=== PATIENT | female | born 1955 | race Caucasian/White ===

== ENCOUNTER 2020-10-26 07:18 | Inpatient (IN) | payer OTHER, SELFPAY ==
[~2020-10-26] VITALS: Ht 167.6 cm; Wt 65.8 kg
[2020-10-26 07:18] VITALS: BP_SYST 169
[2020-10-26] MEDS ORDERED: INSULIN REGULAR, HUMAN 100 UNITS in NS 99 ML IV ONE ×2 (08:15)
[2020-10-26] MEDS ORDERED: INSULIN REGULAR, HUMAN 10 UNITS/0.1 ML INJ ONE (08:18)
[2020-10-26 08:22] LABS: BASOPHILS # (AUTO) 0.1 K/uL (0.0-0.2); BASOPHILS % (AUTO) 0.6 % (0.0-2.0); EOSINOPHILS % (AUTO) 0.1 % (0.0-4.0); HEMATOCRIT 48.2 % (36-48); HEMOGLOBIN 15.6 g/dL (12.0-16.0); LYMPHOCYTES # (AUTO) 2.2 K/uL (1.0-5.5); LYMPHOCYTES % (AUTO) 12.3 % (20.5-51.5); MEAN CORPUSCULAR HEMOGLOBIN 30 pg (27-31); MEAN CORPUSCULAR HGB CONC 32 % (32-36); MEAN CORPUSCULAR VOLUME 91 fL (79.0-98.0); MONOCYTES % (AUTO) 5.5 % (1.7-9.3); NEUTROPHILS # (AUTO) 14.8 K/uL (1.8-7.7); NEUTROPHILS % (AUTO) 81.5 % (40.0-70.0); PLATELET COUNT (AUTO) 540 K/uL (130-430); RED CELL DISTRIBUTION WIDTH 13.9 % (9.0-15.0); WHITE BLOOD COUNT (AUTO) 18.2 K/uL (4.8-10.8)
[2020-10-26] MEDS ORDERED: LEVO88TA5 PO (08:22)
[2020-10-26] MEDS ORDERED: LIP40 PO (08:22)
[2020-10-26] MEDS ORDERED: INSU300I3 SQ (08:22)
[2020-10-26] MEDS ORDERED: LISI-600 PO (08:22)
[2020-10-26] MEDS ORDERED: SITA100T11 PO (08:22)
[2020-10-26] MEDS ORDERED: SODIUM BICARBONATE 8.4% JECT 50 MEQ/50 ML SYRINGE ONE ×3 (08:24→23:02)
[2020-10-26] MEDS ORDERED: SODIUM BICARBONATE 8.4% JECT 50 MEQ/50 ML SYRINGE IVP ONE ×2 (08:30→23:00)
[2020-10-26 08:35] LABS: INR 0.9 (0.8-1.2); PROTHROMBIN TIME 9.6 SECS (9.5-12.5)
[2020-10-26 08:45] LABS: ALANINE AMINOTRANSFERASE 22 U/L (12-78); ALBUMIN 3.5 g/dL (3.4-4.8); ANION GAP 35 (5-15); ASPARTATE AMINOTRANSFERASE 21 U/L (10-37); CALCIUM 10.3 mg/dL (8.4-11.0); CHLORIDE 87 mmol/L (98-107); CREATININE 1.21 mg/dL (0.55-1.30); POTASSIUM 5.7 mmol/L (3.5-5.1); SODIUM SERUM 127 mmol/L (136-145); TOTAL BILIRUBIN 0.6 mg/dL (0.0-1.0); UREA NITROGEN, BLOOD 31 mg/dL (8-21)
[2020-10-26 08:54] LABS: ALCOHOL, BLOOD < 3 mg/dL (<10); GFR AFRICAN AMERICAN 58 mL/min (>90); GLUCOSE 407 mg/dL (70-99)
[2020-10-26] MEDS ORDERED: ONDANSETRON HCL 4 MG/2 ML VIAL IVP PRN (09:00)
[2020-10-26] MEDS ORDERED: NS 500 ML IV SCH (09:00)
[2020-10-26] MEDS ORDERED: KCL 20 mEq in 100 mL (PREMIX) 100 ML IV ONE (09:00)
[2020-10-26] MEDS ORDERED: DEXTROSE 50% JECT 50 ML DISP.SYRIN IVP PRN (09:00)
[2020-10-26] MEDS ORDERED: MAGNESIUM SULFATE 50 ML IV PRN (09:00)
[2020-10-26] MEDS ORDERED: ACETAMINOPHEN 325 MG TABLET PO PRN (09:00)
[2020-10-26] MEDS ORDERED: NACL 0.9% 1,000 ML IV ONE (09:15)
[2020-10-26 09:18] LABS: BILIRUBIN,URINE NEGATIVE (NEGATIVE); CLARITY/URINE SL CLOUDY (CLEAR); COLOR,URINE YELLOW (YELLOW); GLUCOSE,URINE 3+ (NEGATIVE); KETONES,URINE 3+ (NEGATIVE); LEUKOCYTE ESTERASE ,URINE NEGATIVE (NEGATIVE); NITRITE, URINE NEGATIVE (NEGATIVE); PH,URINE 5.5 (5.0-8.0); PROTEIN URINE 1+ (NEGATIVE); UROBILINOGEN,URINE 0.2 (0.2-1.0)
[2020-10-26] MEDS ORDERED: KCL 20 mEq in 100 mL (PREMIX) 100 ML IV PRN (09:20)
[2020-10-26] MEDS ORDERED: NACL 0.9% 2,500 ML IV ONE (09:30)
[2020-10-26 09:33] LABS: BARBITURATE, URINE NEGATIVE (NEG <=200); BENZODIAZEPINE, URINE NEGATIVE (NEG <=150); CANNABINOID, URINE NEGATIVE (NEG <=50); COCAINE, URINE NEGATIVE (NEG <=150); METHAMPHETAMINES SCREEN,URINE NEGATIVE (NEG <=500); OPIATE, URINE NEGATIVE (NEG <=100); PHENCYCLIDINE SCREEN,URINE NEGATIVE (NEG <=25); UR TRICYCLIC ANTIDEPRESSANTS NEGATIVE (NEG <=300); URINE AMPHETAMINE NEGATIVE (NEG <=500); URINE METHADONE NEGATIVE (NEG <=200); URINE OXYCODONE SCREEN NEGATIVE (NEG <=100); URINE PROPOXYPHENE SCREEN NEGATIVE (NEG <=300)
[2020-10-26 09:35] LABS: BLOOD, URINE TRACE (NEGATIVE)
[2020-10-26 09:55] LABS: ANION GAP 32 (5-15); CALCIUM 8.8 mg/dL (8.4-11.0); CHLORIDE 94 mmol/L (98-107); GLUCOSE 397 mg/dL (70-99); PHOSPHORUS 5.8 mg/dL (2.7-4.5); SODIUM SERUM 133 mmol/L (136-145); UREA NITROGEN, BLOOD 33 mg/dL (8-21)
[2020-10-26 09:58] LABS: GFR AFRICAN AMERICAN 53 mL/min (>90)
[2020-10-26 10:18] LABS: ACETONE, SERUM LARGE (NEGATIVE); CHOLESTEROL 179 mg/dL (<200); HDL CHOLESTEROL 25 mg/dL (>55); LDL CHOLESTEROL 105 mg/dL (<100); TRIGLYCERIDES 253 mg/dL (30-150)
[2020-10-26 10:27] LABS: BACTERIA,URINE RARE /HPF (None Seen); WBC,URINE 0-3 /HPF (0-3)
[2020-10-26 10:28] LABS: COARSE GRANULAR CASTS,URINE 0-10 /LPF (None Seen); URINE AMORPHOUS URATE 2+ /HPF (None Seen)
[2020-10-26] MEDS: INSULIN REGULAR, HUMAN 100 UNITS in NS 99 ML IV PRN ×10 (12:47→22:28)
[2020-10-26] MEDS: AZITHROMYCIN 250 MG in NS 250 ML IV SCH (12:48)
[2020-10-26 12:52] LABS: CREATININE 1.28 mg/dL (0.55-1.30); POTASSIUM 3.8 mmol/L (3.5-5.1)
[2020-10-26] MEDS ORDERED: AZITHROMYCIN 500 MG/VIAL (ZITHROMAX) IV ONE (12:52)
[2020-10-26] MEDS ORDERED: ENOXAPARIN SODIUM 40 MG/0.4 ML SYRINGE ONE ×2 (12:55→21:48)
[2020-10-26] MEDS: ASCORBIC ACID 500 MG TABLET PO SCH ×2 (12:58→21:00)
[2020-10-26] MEDS: CHOLECALCIFEROL (VITAMIN D3) 5,000 UNIT TABLET PO SCH (12:59)
[2020-10-26] MEDS: THIAMINE HCL 100 MG TABLET PO SCH (12:59)
[2020-10-26] MEDS: ENOXAPARIN SODIUM 40 MG/0.4 ML SYRINGE SUBCUT SCH ×2 (13:01→21:51)
[2020-10-26] MEDS ORDERED: cefTRIAXone 1 GM VIAL ONE (13:04)
[2020-10-26] MEDS: FAMOTIDINE PF 20 MG/2 ML VIAL IVP SCH ×2 (13:29→21:58)
[2020-10-26] MEDS ORDERED: 0.45% NACL 1,000 ML IV ONE (17:00)
[2020-10-26 18:26] LABS: CALCIUM 7.7 mg/dL (8.4-11.0); CREATININE 1.11 mg/dL (0.55-1.30); POTASSIUM 3.9 mmol/L (3.5-5.1)
[2020-10-26] MEDS ORDERED: SODIUM BICARBONATE 8.4% JECT 50 MEQ in 0.45% NACL 1,000 ML IVP SCH ×2 (19:00→19:15)
[2020-10-26] MEDS ORDERED: 0.45% NACL 1,000 ML IV SCH (19:00)
[2020-10-26] MEDS ORDERED: D5/0.45 NS 500 ML IV ONE (19:15)
[2020-10-26 22:44] LABS: CALCIUM 7.8 mg/dL (8.4-11.0); CREATININE 1.13 mg/dL (0.55-1.30); POTASSIUM 3.6 mmol/L (3.5-5.1)
[2020-10-27] MEDS: INSULIN REGULAR, HUMAN 100 UNITS in NS 99 ML IV PRN ×20 (01:38→18:57)
[2020-10-27 02:33] LABS: CREATININE 1.16 mg/dL (0.55-1.30); POTASSIUM 3.1 mmol/L (3.5-5.1)
[2020-10-27] MEDS ORDERED: SODIUM BICARBONATE 8.4% JECT 50 MEQ/50 ML SYRINGE IVP ONE ×2 (02:45→21:00)
[2020-10-27] MEDS ORDERED: SODIUM BICARBONATE 8.4% JECT 50 MEQ/50 ML SYRINGE ONE ×2 (02:49→21:07)
[2020-10-27] MEDS: DEXTROSE IV SCH (03:07)
[2020-10-27 07:00] LABS: BASOPHILS # (AUTO) 0.1 K/uL (0.0-0.2); BASOPHILS % (AUTO) 0.9 % (0.0-2.0); HEMATOCRIT 36.3 % (36-48); HEMOGLOBIN 12.4 g/dL (12.0-16.0); LYMPHOCYTES # (AUTO) 1.2 K/uL (1.0-5.5); LYMPHOCYTES % (AUTO) 12.9 % (20.5-51.5); MEAN CORPUSCULAR HEMOGLOBIN 30 pg (27-31); MEAN CORPUSCULAR HGB CONC 34 % (32-36); MEAN CORPUSCULAR VOLUME 87 fL (79.0-98.0); MONOCYTES # (AUTO) 1.1 K/uL (0.0-1.0); MONOCYTES % (AUTO) 11.8 % (1.7-9.3); NEUTROPHILS # (AUTO) 6.8 K/uL (1.8-7.7); NEUTROPHILS % (AUTO) 74.4 % (40.0-70.0); PLATELET COUNT (AUTO) 434 K/uL (130-430); RED BLOOD CELL COUNT(AUTO) 4.17 MIL/uL (4.2-6.2); RED CELL DISTRIBUTION WIDTH 13.7 % (9.0-15.0); WHITE BLOOD COUNT (AUTO) 9.2 K/uL (4.8-10.8)
[2020-10-27 07:17] LABS: CALCIUM 8.1 mg/dL (8.4-11.0); CREATININE 1.19 mg/dL (0.55-1.30)
[2020-10-27 08:13] LABS: POTASSIUM 2.8 mmol/L (3.5-5.1)
[2020-10-27] MEDS ORDERED: 0.45% NS 500 ML IV ONE (08:15)
[2020-10-27] MEDS ORDERED: KCL 20 mEq in 100 mL (PREMIX) 100 ML IV ONE ×3 (08:15→23:54)
[2020-10-27] MEDS ORDERED: NACL 0.9% 1,000 ML IV ONE (08:15)
[2020-10-27] MEDS: AZITHROMYCIN 250 MG in NS 250 ML IV SCH (08:22)
[2020-10-27] MEDS: ASCORBIC ACID 500 MG TABLET PO SCH ×2 (09:18→21:25)
[2020-10-27] MEDS: FAMOTIDINE PF 20 MG/2 ML VIAL IVP SCH ×2 (09:18→21:26)
[2020-10-27] MEDS: THIAMINE HCL 100 MG TABLET PO SCH (09:18)
[2020-10-27] MEDS: CHOLECALCIFEROL (VITAMIN D3) 5,000 UNIT TABLET PO SCH (09:19)
[2020-10-27] MEDS: ENOXAPARIN SODIUM 40 MG/0.4 ML SYRINGE SUBCUT SCH ×2 (09:19→21:19)
[2020-10-27] MEDS ORDERED: cefTRIAXone 1 GM VIAL ONE (09:24)
[2020-10-27] MEDS ORDERED: KCL 40 mEq in 100 mL (PREMIX) 100 ML IV ONE (10:00)
[2020-10-27 11:08] LABS: ALBUMIN 2.1 g/dL (3.4-4.8); CALCIUM 7.3 mg/dL (8.4-11.0); CREATININE 1.28 mg/dL (0.55-1.30); POTASSIUM 3.8 mmol/L (3.5-5.1); TOTAL BILIRUBIN 0.4 mg/dL (0.0-1.0)
[2020-10-27 14:29] LABS: CALCIUM 7.8 mg/dL (8.4-11.0); CREATININE 1.11 mg/dL (0.55-1.30)
[2020-10-27 14:46] LABS: POTASSIUM 2.6 mmol/L (3.5-5.1)
[2020-10-27 19:46] LABS: CALCIUM 8.1 mg/dL (8.4-11.0); CREATININE 1.08 mg/dL (0.55-1.30); POTASSIUM 4.1 mmol/L (3.5-5.1)
[2020-10-27] MEDS ORDERED: ENOXAPARIN SODIUM 40 MG/0.4 ML SYRINGE ONE (21:18)
[2020-10-27 23:49] LABS: CALCIUM 8.1 mg/dL (8.4-11.0); CREATININE 1.09 mg/dL (0.55-1.30)
[2020-10-27 23:50] LABS: POTASSIUM 2.7 mmol/L (3.5-5.1)
[2020-10-28] MEDS ORDERED: POTASSIUM CHLORIDE 20 MEQ TAB.PRT.SR PO ONE ×2 (00:15→09:15)
[2020-10-28] MEDS ORDERED: POTASSIUM CHLORIDE 20 MEQ TAB.PRT.SR ONE (00:24)
[2020-10-28 03:47] LABS: CALCIUM 7.9 mg/dL (8.4-11.0); CREATININE 1.16 mg/dL (0.55-1.30); POTASSIUM 3.3 mmol/L (3.5-5.1)
[2020-10-28] MEDS: DEXTROSE IV SCH ×2 (03:51→16:12)
[2020-10-28 07:51] LABS: BASOPHILS % (AUTO) 0.5 % (0.0-2.0); HEMOGLOBIN 11.3 g/dL (12.0-16.0); LYMPHOCYTES # (AUTO) 1.7 K/uL (1.0-5.5); LYMPHOCYTES % (AUTO) 22.2 % (20.5-51.5); MEAN CORPUSCULAR HEMOGLOBIN 30 pg (27-31); MEAN CORPUSCULAR HGB CONC 34 % (32-36); MEAN CORPUSCULAR VOLUME 87 fL (79.0-98.0); MONOCYTES # (AUTO) 0.9 K/uL (0.0-1.0); NEUTROPHILS # (AUTO) 5.1 K/uL (1.8-7.7); NEUTROPHILS % (AUTO) 65.3 % (40.0-70.0); PLATELET COUNT (AUTO) 366 K/uL (130-430); RED BLOOD CELL COUNT(AUTO) 3.82 MIL/uL (4.2-6.2); RED CELL DISTRIBUTION WIDTH 13.9 % (9.0-15.0); WHITE BLOOD COUNT (AUTO) 7.8 K/uL (4.8-10.8)
[2020-10-28 08:16] LABS: CALCIUM 7.9 mg/dL (8.4-11.0); CREATININE 1.1 mg/dL (0.55-1.30); POTASSIUM 3.4 mmol/L (3.5-5.1)
[2020-10-28 10:59] LABS: ALBUMIN 1.9 g/dL (3.4-4.8); CALCIUM 7.8 mg/dL (8.4-11.0); CREATININE 1.13 mg/dL (0.55-1.30); POTASSIUM 3.2 mmol/L (3.5-5.1); TOTAL BILIRUBIN 0.4 mg/dL (0.0-1.0)
[2020-10-28] MEDS: FAMOTIDINE PF 20 MG/2 ML VIAL IVP SCH (11:30)
[2020-10-28] MEDS ORDERED: cefTRIAXone 1 GM VIAL ONE (12:07)
[2020-10-28 13:22] LABS: CALCIUM 8.6 mg/dL (8.4-11.0); POTASSIUM 3.3 mmol/L (3.5-5.1)
[2020-10-28 13:27] LABS: ALBUMIN 2.3 g/dL (3.4-4.8); TOTAL BILIRUBIN 0.4 mg/dL (0.0-1.0)
[2020-10-28] MEDS: AZITHROMYCIN 250 MG in NS 250 ML IV SCH (13:36)
[2020-10-28] MEDS: CHOLECALCIFEROL (VITAMIN D3) 5,000 UNIT TABLET PO SCH (13:37)
[2020-10-28] MEDS: ASCORBIC ACID 500 MG TABLET PO SCH (13:37)
[2020-10-28] MEDS: THIAMINE HCL 100 MG TABLET PO SCH (13:37)
[2020-10-28] MEDS: ENOXAPARIN SODIUM 40 MG/0.4 ML SYRINGE SUBCUT SCH (13:59)
[2020-10-28] MEDS ORDERED: SODIUM BICARBONATE 8.4% JECT 50 MEQ/50 ML SYRINGE IVP ONE (14:00)
[2020-10-28] MEDS ORDERED: SODIUM BICARBONATE 8.4% VIAL 50 MEQ/50 ML VIAL ONE (14:03)
[2020-10-28] MEDS ORDERED: NACL 0.9% 1,000 ML IV ONE (15:15)
[2020-10-28 15:38] LABS: CALCIUM 8.7 mg/dL (8.4-11.0); CREATININE 0.95 mg/dL (0.55-1.30); POTASSIUM 3.5 mmol/L (3.5-5.1)
[2020-10-28] MEDS ORDERED: INSULIN GLARGINE 100 UNITS/ML 10 ML VIAL SUBCUT SCH (18:00)
[2020-10-28] MEDS: FAMOTIDINE 20 MG TABLET PO SCH (21:00)
[2020-10-28 23:35] LABS: CALCIUM 7.9 mg/dL (8.4-11.0); CREATININE 0.93 mg/dL (0.55-1.30); POTASSIUM 3.3 mmol/L (3.5-5.1)
[2020-10-29] MEDS: INSULIN Lispro 100 UNITS/ML VIAL (humaLOG) SUBCUT SCH ×3 (07:00→11:30)
[2020-10-29] MEDS ORDERED: NACL 0.9% 1,000 ML IV ONE (08:45)
[2020-10-29 08:50] LABS: ALBUMIN 2.1 g/dL (3.4-4.8); CALCIUM 8.1 mg/dL (8.4-11.0); CREATININE 0.82 mg/dL (0.55-1.30); TOTAL BILIRUBIN 0.4 mg/dL (0.0-1.0)
[2020-10-29] MEDS ORDERED: INSULIN GLARGINE 100 UNITS/ML 10 ML VIAL SUBCUT SCH (09:00)
[2020-10-29] MEDS ORDERED: lisinopriL 20 MG TABLET PO ONE (09:00)
[2020-10-29] MEDS: INSULIN REGULAR, HUMAN 100 UNITS in NS 99 ML IV PRN ×6 (10:29→17:12)
[2020-10-29] MEDS: THIAMINE HCL 100 MG TABLET PO SCH (10:37)
[2020-10-29] MEDS: CHOLECALCIFEROL (VITAMIN D3) 5,000 UNIT TABLET PO SCH (10:37)
[2020-10-29] MEDS ORDERED: LISINOPRIL 10 MG TABLET (PRINIVIL) ONE (11:28)
[2020-10-29] MEDS: lisinopriL 20 MG TABLET PO SCH (11:36)
[2020-10-29] MEDS: ENOXAPARIN SODIUM 40 MG/0.4 ML SYRINGE SUBCUT SCH ×3 (11:38→21:00)
[2020-10-29] MEDS: ASCORBIC ACID 500 MG TABLET PO SCH ×2 (11:39→12:02)
[2020-10-29] MEDS: FAMOTIDINE 20 MG TABLET PO SCH (12:01)
[2020-10-29] MEDS: DEXTROSE IV SCH (17:09)
[2020-10-29] MEDS ORDERED: SODIUM BICARBONATE 650 MG TABLET PO SCH (17:30)
[2020-10-29] MEDS ORDERED: POTASSIUM CHLORIDE 20 MEQ TAB.PRT.SR PO ONE (17:30)
[2020-10-30 06:35] LABS: BASOPHILS % (AUTO) 0.7 % (0.0-2.0); EOSINOPHILS % (AUTO) 0.7 % (0.0-4.0); HEMATOCRIT 34.1 % (36-48); HEMOGLOBIN 11.9 g/dL (12.0-16.0); LYMPHOCYTES % (AUTO) 32.1 % (20.5-51.5); MEAN CORPUSCULAR HEMOGLOBIN 30 pg (27-31); MEAN CORPUSCULAR HGB CONC 35 % (32-36); MONOCYTES # (AUTO) 0.8 K/uL (0.0-1.0); MONOCYTES % (AUTO) 12.7 % (1.7-9.3); NEUTROPHILS # (AUTO) 3.3 K/uL (1.8-7.7); NEUTROPHILS % (AUTO) 53.8 % (40.0-70.0); RED BLOOD CELL COUNT(AUTO) 4.04 MIL/uL (4.2-6.2); RED CELL DISTRIBUTION WIDTH 13.6 % (9.0-15.0); WHITE BLOOD COUNT (AUTO) 6.1 K/uL (4.8-10.8)
[2020-10-30 06:56] LABS: ALBUMIN 1.8 g/dL (3.4-4.8); CALCIUM 8.1 mg/dL (8.4-11.0); CREATININE 0.6 mg/dL (0.55-1.30); TOTAL BILIRUBIN 0.3 mg/dL (0.0-1.0)
[2020-10-30] MEDS: INSULIN Lispro 100 UNITS/ML VIAL (humaLOG) SUBCUT SCH ×3 (07:00→17:00)
[2020-10-30 07:17] LABS: POTASSIUM 2.4 mmol/L (3.5-5.1)
[2020-10-30] MEDS ORDERED: POTASSIUM CHLORIDE 20 MEQ TAB.PRT.SR ONE (08:02)
[2020-10-30 08:15] LABS: MEAN CORPUSCULAR VOLUME 85 fL (79.0-98.0)
[2020-10-30] MEDS ORDERED: POTASSIUM CHLORIDE 20 MEQ TAB.PRT.SR PO ONE (08:30)
[2020-10-30] MEDS: KCL 20 mEq in 0.45% NS 1000 mL 1,000 ML IV SCH ×2 (08:30→18:07)
[2020-10-30] MEDS ORDERED: KCL 20 mEq in 100 mL (PREMIX) 200 ML IV ONE (08:30)
[2020-10-30] MEDS: FAMOTIDINE 20 MG TABLET PO SCH ×3 (11:24→21:51)
[2020-10-30] MEDS: ASCORBIC ACID 500 MG TABLET PO SCH ×3 (11:24→21:51)
[2020-10-30] MEDS: LEVOTHYROXINE SODIUM 0.088 MG TABLET PO SCH (11:25)
[2020-10-30] MEDS: CHOLECALCIFEROL (VITAMIN D3) 5,000 UNIT TABLET PO SCH (11:27)
[2020-10-30] MEDS: ENOXAPARIN SODIUM 40 MG/0.4 ML SYRINGE SUBCUT SCH (11:29)
[2020-10-30] MEDS: cephALEXin 500 MG CAPSULE PO SCH ×2 (11:29→18:06)
[2020-10-30] MEDS ORDERED: INSULIN GLARGINE 100 UNITS/ML 10 ML VIAL ONE (11:31)
[2020-10-30] MEDS: INSULIN GLARGINE 100 UNITS/ML 10 ML VIAL SUBCUT SCH (11:35)
[2020-10-30] MEDS ORDERED: FAMOTIDINE 20 MG TABLET ONE (11:38)
[2020-10-30 12:39] LABS: PLATELET COUNT (AUTO) 373 K/uL (130-430)
[2020-10-30 12:54] LABS: CALCIUM 7.7 mg/dL (8.4-11.0); CREATININE 0.57 mg/dL (0.55-1.30); POTASSIUM 3.7 mmol/L (3.5-5.1)
[2020-10-30] MEDS ORDERED: cephALEXin 500 MG CAPSULE ONE (17:56)
[2020-10-31] MEDS: cephALEXin 500 MG CAPSULE PO SCH ×4 (00:45→19:16)
[2020-10-31] MEDS: KCL 20 mEq in 0.45% NS 1000 mL 1,000 ML IV SCH ×2 (04:39→19:10)
[2020-10-31] MEDS: INSULIN Lispro 100 UNITS/ML VIAL (humaLOG) SUBCUT SCH ×3 (07:00→19:16)
[2020-10-31] MEDS: LEVOTHYROXINE SODIUM 0.088 MG TABLET PO SCH (07:35)
[2020-10-31 09:45] LABS: ALBUMIN 2.1 g/dL (3.4-4.8); CALCIUM 8.3 mg/dL (8.4-11.0); CREATININE 0.41 mg/dL (0.55-1.30); POTASSIUM 4.7 mmol/L (3.5-5.1); TOTAL BILIRUBIN 0.3 mg/dL (0.0-1.0)
[2020-10-31] MEDS ORDERED: INSULIN GLARGINE 100 UNITS/ML 10 ML VIAL ONE (10:07)
[2020-10-31] MEDS: INSULIN GLARGINE 100 UNITS/ML 10 ML VIAL SUBCUT SCH (10:17)
[2020-10-31] MEDS: ENOXAPARIN SODIUM 40 MG/0.4 ML SYRINGE SUBCUT SCH (10:18)
[2020-10-31] MEDS: FAMOTIDINE 20 MG TABLET PO SCH ×2 (10:37→20:45)
[2020-10-31] MEDS: lisinopriL 20 MG TABLET PO SCH (10:38)
[2020-10-31] MEDS: ASCORBIC ACID 500 MG TABLET PO SCH ×2 (10:38→20:45)
[2020-10-31] MEDS: CHOLECALCIFEROL (VITAMIN D3) 5,000 UNIT TABLET PO SCH (10:39)
[2020-11-01] MEDS: cephALEXin 500 MG CAPSULE PO SCH ×2 (00:53→06:08)
[2020-11-01] MEDS: KCL 20 mEq in 0.45% NS 1000 mL 1,000 ML IV SCH (01:02)
[2020-11-01] MEDS: LEVOTHYROXINE SODIUM 0.088 MG TABLET PO SCH (06:50)
[2020-11-01] MEDS ORDERED: INSULIN Lispro 100 UNITS/ML VIAL (humaLOG) ONE (08:12)
[2020-11-01] MEDS: INSULIN Lispro 100 UNITS/ML VIAL (humaLOG) SUBCUT SCH (08:21)
[2020-11-01] MEDS ORDERED: ATORVASTATIN 20 MG TABLET PO SCH (09:00)
[2020-11-01] MEDS: ENOXAPARIN SODIUM 40 MG/0.4 ML SYRINGE SUBCUT SCH (09:00)
[2020-11-01] MEDS: FAMOTIDINE 20 MG TABLET PO SCH (10:19)
[2020-11-01] MEDS: ASCORBIC ACID 500 MG TABLET PO SCH (10:20)
[2020-11-01] MEDS: CHOLECALCIFEROL (VITAMIN D3) 5,000 UNIT TABLET PO SCH (10:20)
[2020-11-01] MEDS: lisinopriL 20 MG TABLET PO SCH (10:20)
[2020-11-01] MEDS: INSULIN GLARGINE 100 UNITS/ML 10 ML VIAL SUBCUT SCH (10:27)
[2020-11-01 11:42] LABS: ALBUMIN 2.2 g/dL (3.4-4.8); CREATININE 0.5 mg/dL (0.55-1.30); TOTAL BILIRUBIN 0.3 mg/dL (0.0-1.0)
[2020-11-01 11:51] LABS: CALCIUM 8.3 mg/dL (8.4-11.0)
[2020-11-01 13:04] VITALS: BP_SYST 148
== END 2020-11-01 13:04 | disposition home or self-care (01) | DRG 208 ==
LOC: SED 07:18 → SIC 11:55
PROVIDERS: ADMIT Internal Medicine; ATTEND Internal Medicine
PROC: 5A1935Z Respiratory Ventilation, Less than 24 Consecutive Hours (ICD-10-PCS; principal; 2020-10-29)
DX: U07.1 COVID-19 (principal); E11.10 Type 2 diabetes mellitus with ketoacidosis without coma; J96.21 Acute and chronic respiratory failure with hypoxia; N39.0 Urinary tract infection, site not specified; E87.1 Hypo-osmolality and hyponatremia; N17.9 Acute kidney failure, unspecified; G93.40 Encephalopathy, unspecified; I10 Essential (primary) hypertension; E87.5 Hyperkalemia; Z20.828 Contact with and (suspected) exposure to other viral communicable diseases; E87.6 Hypokalemia; G93.89 Other specified disorders of brain; E86.0 Dehydration; E03.9 Hypothyroidism, unspecified; E78.5 Hyperlipidemia, unspecified; D64.9 Anemia, unspecified; Z90.49 Acquired absence of other specified parts of digestive tract; Z79.899 Other long term (current) drug therapy; Z79.84 Long term (current) use of oral hypoglycemic drugs
CPT/HCPCS: 36415; 36600; 70450-TC; 71045; 76376; 80048; 80053; 80061; 80307; 81000-TC; 82009-TC; 82550-TC; 82803-TC; 82962; 83036; 83735-TC; 84100-TC; 84484; 85025; 85610-TC; 87040-TC; 87081; 93005; 96361; 96365; 96375; 97110-GP; 97112-GP; 97116-GP; 97530-GP; 99285; G0481; G0482; J0456; J0696; J1650; J1815; J3480; J3490; J7030; J7040; J7050

== ENCOUNTER 2022-01-12 14:32 | Emergency (ER) | payer OTHER, BC ==
[~2022-01-12] VITALS: Ht 157.5 cm; Wt 65.3 kg
[~2022-01-12 14:32] MED LIST: INSU300I3 SQ; LEVO88TA5 PO; LIP40 PO; LISI20TA30 PO; SITA100T11 PO
[2022-01-12 15:19] VITALS: BP_SYST 145
--- NOTE | 2022-01-12 15:38 | NUR ---
ER in triage examining patient.
[2022-01-12] MEDS ORDERED: HYDR-3917 PO (17:29)
[2022-01-12 17:38] VITALS: BP_SYST 139
--- NOTE | 2022-01-12 17:39 | NUR ---
Patient given written and verbal discharge instructions and verbalizes understanding. ALEJANDRA santana MD discussed with patient the results and treatment provided. Patient in stable condition. ID arm band removed. Rx of hydrocodone given. Patient educated on pain management and to follow up with PMD. Pain Scale 2. Opportunity for questions provided and answered. Medication side effect fact sheet provided.
== END 2022-01-12 17:38 | disposition home or self-care (01) ==
LOC: SED 14:32
DX: S20.219A Contusion of unspecified front wall of thorax, initial encounter (principal); S20.229A Contusion of unspecified back wall of thorax, initial encounter; E78.5 Hyperlipidemia, unspecified; I10 Essential (primary) hypertension; E11.9 Type 2 diabetes mellitus without complications; Z79.899 Other long term (current) drug therapy; V49.49XA Driver injured in collision with other motor vehicles in traffic accident, initial encounter; Y93.89 Activity, other specified; Y92.488 Other paved roadways as the place of occurrence of the external cause; Y99.8 Other external cause status
CPT/HCPCS: 71250-TC; 72128; 72131; 76376; 93005; 99284